=== PATIENT | female | born 1975 | race Caucasian/White ===

== ENCOUNTER 2022-08-18 13:47 | Outpatient (CLI) | payer BC | END 2022-08-18 13:48 | disposition home or self-care (01) | LOC: CSHMAMMO 13:47 | PROVIDERS: ATTEND Internal Medicine | DX: Z12.31 Encounter for screening mammogram for malignant neoplasm of breast (principal); Z85.850 Personal history of malignant neoplasm of thyroid | CPT/HCPCS: 77063; 77067 ==

== ENCOUNTER 2022-11-17 11:10 | Outpatient (CLI) | payer BC | END 2022-11-17 11:11 | disposition home or self-care (01) | LOC: CSHMAMMO 11:10 | PROVIDERS: ATTEND Obstetrics & Gynecology | DX: M85.89 Other specified disorders of bone density and structure, multiple sites (principal); M81.0 Age-related osteoporosis without current pathological fracture | CPT/HCPCS: 77080 ==

== ENCOUNTER 2023-12-05 13:57 | Outpatient (CLI) | payer BC | END 2023-12-05 13:58 | disposition home or self-care (01) | LOC: CSHMAMMO 13:57 | PROVIDERS: ATTEND Internal Medicine | DX: Z12.31 Encounter for screening mammogram for malignant neoplasm of breast (principal); Z85.850 Personal history of malignant neoplasm of thyroid | CPT/HCPCS: 77063; 77067 ==